=== PATIENT | male | born 1975 | race Caucasian/White ===

== ENCOUNTER 2020-06-25 20:35 | Emergency (ER) | payer SELFPAY ==
[~2020-06-25] VITALS: Ht 170.2 cm; Wt 72.7 kg
[2020-06-25 21:00] LABS: HEMOGLOBIN 15.6 g/dL (13.3-17.7); MEAN PLATELET VOLUME 9.1 fL (9.0-12.2); WHITE BLOOD COUNT 14.2 10^3/uL (4.3-11.0)
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
[2020-06-25] MEDS ORDERED: BUPIVACAINE 0.5% 30 ML (SENSORCAINE) VIAL ONE (21:14)
[2020-06-25] MEDS ORDERED: TETANUS,DIPTH,PERTUSS P/F (BOOSTRIX) 0.5 ML VIAL IM ONE (21:15)
[2020-06-25] MEDS ORDERED: fentaNYL INJECTION 100 MCG/2 ML AMP IVP PRN (21:15)
[2020-06-25] MEDS ORDERED: LIDOCAINE 1% INJ 20 ML 20 ML VIAL ONE (21:15)
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
[2020-06-25 21:18] LABS: ALBUMIN 4.3 GM/DL (3.2-4.5)
[2020-06-25 21:20] LABS: CALCIUM 8.9 MG/DL (8.5-10.1)
[2020-06-25 21:21] LABS: GLUCOSE 151 MG/DL (70-105); TOTAL PROTEIN 7.5 GM/DL (6.4-8.2)
[2020-06-25 21:22] LABS: BILIRUBIN,TOTAL 0.1 MG/DL (0.1-1.0); CARBON DIOXIDE 23 MMOL/L (21-32)
[2020-06-25 21:24] LABS: ALKALINE PHOSPHATASE 76 U/L (40-136); CREATININE SERUM 1.06 MG/DL (0.60-1.30); GFR ESTIMATED > 60
[2020-06-25 21:25] LABS: BUN/CREATININE RATIO 9
[2020-06-25 21:27] LABS: ALANINE AMINOTRANSFERASE 37 U/L (0-55)
[2020-06-25 21:33] LABS: CHLORIDE 104 MMOL/L (98-107); POTASSIUM 3.2 MMOL/L (3.6-5.0); SODIUM 138 MMOL/L (135-145)
[2020-06-25] MEDS ORDERED: ceFAZolin INJECTION 2,000 MG ONE (21:58)
[2020-06-25] MEDS ORDERED: NS (IVPB) 50 ML ONE (21:59)
[2020-06-25] MEDS ORDERED: ceFAZolin 2 GM IV Premixed 50 ML IV ONE (22:00)
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
[2020-06-25] MEDS ORDERED: CEPH500T PO (23:39)
[2020-06-25] MEDS ORDERED: OXYC-471 PO (23:39)
[2020-06-25] MEDS ORDERED: RX-OXYCODONE/APAP 5-325 MG #4 TAB PK PO PRN (23:45)
[2020-06-25 23:55] VITALS: BP 130/82
--- NOTE | 2020-06-26 06:38 | Diagnostic Imaging Report ---
INDICATION: 4th digit amputation COMPARISON: None FINDINGS: Two views of the left hand demonstrate amputation of the 4th digit at the proximal phalanx. There is no radiopaque foreign body or additional fracture. IMPRESSION: 4th digit amputation Dictated by: Dictated on workstation # [id number]
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
== END 2020-06-25 23:55 | disposition home or self-care (01) ==
LOC: ER 20:40
DX: S68.115A Complete traumatic metacarpophalangeal amputation of left ring finger, initial encounter (principal); F17.210 Nicotine dependence, cigarettes, uncomplicated; Z23 Encounter for immunization; Y22.XXXA Handgun discharge, undetermined intent, initial encounter
CPT/HCPCS: 11010; 12032; 64450; 71045; 73120; 73130; 80053; 85027; 99285; G0480; 36415; 80320; 90715

== ENCOUNTER 2020-06-26 11:06 | Emergency (ER) | payer SELFPAY ==
[~2020-06-26] VITALS: Ht 170.2 cm; Wt 74.1 kg
[~2020-06-26 11:06] MED LIST: CEPH500T PO; OXYC-471 PO
[2020-06-26 11:30] VITALS: BP 149/90
--- NOTE | 2020-06-26 11:46 | ED Suture Removal/Wound Check ---
Suture/Wound Re-check Suture Removal/Wound Recheck : Suture Removal/Wound Recheck: Packing removed General Appearance: WD/WN, no apparent distress Neuro/Tendon: responds to pain Skin Exam: normal color, warm/dry Physical Exam Vital Signs Capillary Refill : General Appearance: WD/WN, no apparent distress Neck: non-tender, full range of motion Respiratory: no respiratory distress, no accessory muscle use Extremities: swelling (the amputation of 4th digit visualized, minimal oozing of blood. Exposed bone. Covered with oil emulsion dressing then gauze then coban. ) Neurologic/Psychiatric: alert, normal mood/affect, oriented x 3 Skin: normal color, warm/dry Departure Impression Primary Impression: Visit for wound check Additional Impression: Amputation of left ring finger Disposition: HOME, SELF-CARE Condition: Stable Departure-Patient Inst. Decision time for Depature: 11:45 Referrals: NO,LOCAL PHYSICIAN (PCP/Family) Primary Care Physician Patient Instructions: Wound Care (DC) Add. Discharge Instructions: . Go to day surgery department over the weekend for dressing change daily. If you have any problems, return to ER. All discharge instructions reviewed with patient and/or family. Voiced understanding. ZAIN SULLIVAN ARTIFICIAL FLOWERS STARCHER Jun 26, 2020 11:46
== END 2020-06-26 11:50 | disposition home or self-care (01) ==
LOC: EDUNIT# 11:06 → ER 11:08
DX: Z89.022 Acquired absence of left finger(s) (principal)

== ENCOUNTER 2020-07-06 09:00 | Outpatient (RCR) | payer SELFPAY ==
[2020-06-27 10:00] VITALS: BP 133/93
[2020-06-28 09:30] VITALS: BP 116/89
[2020-06-29 09:30] VITALS: BP 130/84
[2020-07-05 09:00] VITALS: BP 130/81
[~2020-07-06] VITALS: Ht 147 cm; Wt 74.1 kg
[2020-07-06 09:00] VITALS: BP 140/89
[~2020-07-06 09:00] MED LIST changes: -OXYC-471 PO; +OXYC1TAB11 PO
== END 2020-09-25 | disposition home or self-care (01) ==
LOC: SDC 09:00
PROVIDERS: ATTEND Surgery
DX: Z01.89 Encounter for other specified special examinations (principal)
CPT/HCPCS: 99212

== ENCOUNTER 2021-07-21 05:33 | Outpatient (CLI) | payer OTHER ==
[~2021-07-21] VITALS: Ht 170 cm; Wt 70.0 kg
[2021-07-21] MEDS ORDERED: ASCO500C17 PO (15:17)
== END 2021-07-22 17:51 | disposition home or self-care (01) ==
LOC: PREOP 05:33
PROVIDERS: ATTEND Surgery
DX: Z01.818 Encounter for other preprocedural examination (principal)

== ENCOUNTER 2021-08-27 05:37 | Outpatient (CLI) | payer OTHER ==
[~2021-08-27 05:37] MED LIST changes: +ASCO500C17 PO
== END 2021-08-28 14:01 | disposition home or self-care (01) ==
LOC: PREOP 05:37
PROVIDERS: ATTEND Surgery
DX: Z01.818 Encounter for other preprocedural examination (principal)

== ENCOUNTER 2021-09-17 05:29 | Outpatient (CLI) | payer OTHER ==
[~2021-09-17] VITALS: Ht 170.8 cm; Wt 70.0 kg
== END 2021-09-17 08:58 ==
LOC: PREOP 05:29
PROVIDERS: ATTEND Surgery
DX: Z01.818 Encounter for other preprocedural examination (principal)